=== PATIENT | female | born 1995 | race Caucasian/White ===

== ENCOUNTER 2017-10-29 20:23 | Emergency (ER) | payer OTHER ==
[2017-10-29 20:40] VITALS: BP 123/76; PULSE 79; TEMP 98.5; BMI 24.7
--- NOTE | 2017-10-29 20:40 | PDOC ---
Rapid Medical Evaluation Time Seen by Provider: 10/29/17 20:37 Medical Evaluation: Allergies Allergy/AdvReac Type Severity Reaction Status Date / Time No Known Allergies Allergy Verified 10/10/14 15:55 10/29/17 20:37 I have performed a brief in-person evaluation of this patient. The patient presents with a chief complaint of: left sided parietal dull dawson travelling to frontal forehead with left arm tingling x1 week. PMD informed pt' s "iron count is 8" Pertinent physical exam findings: BUE/BLE strength5/5 I have ordered the following:upreg The patient will proceed to the ED for further evaluation. Discharge Disposition - Referrals Referrals: Merrill Thurman MD [Primary Care Provider] - - Patient Instructions - Post Discharge Activity
[2017-10-29 20:56] LABS: BASO % 0.5 % (0-2.0); EOS % 3.2 % (0-4.5); HEMATOCRIT 34.7 % (32.4-45.2); HEMOGLOBIN 11.6 GM/dL (10.7-15.3); LYMPH % 26.8 % (8-40); MCH 26.5 pg (25.7-33.7); MCHC 33.3 g/dl (32.0-36.0); MEAN CELL VOLUME 79.4 fl (80-96); MEAN PLT VOLUME 7.8 fl (7.5-11.1); MONO % 5.3 % (3.8-10.2); NEUT % 64.2 % (42.8-82.8); PLATELET COUNT 217 K/MM3 (134-434); RBC 4.37 M/mm3 (3.60-5.2); RDW 14.2 % (11.6-15.6); WHITE BLOOD COUNT 6.2 K/mm3 (4.0-10.0)
[2017-10-29 20:58] LABS: HCG,QUALITATIVE URINE NEGATIVE; URINE APPEARANCE CLEAR; URINE BILIRUBIN NEGATIVE (NEGATIVE); URINE BLOOD NEGATIVE (NEGATIVE); URINE COLOR LTYELLOW; URINE GLUCOSE (UA) NEGATIVE (NEGATIVE); URINE KETONE NEGATIVE (NEGATIVE); URINE LEUK ESTERASE NEGATIVE (NEGATIVE); URINE NITRITE NEGATIVE (NEGATIVE); URINE PROTEIN NEGATIVE (NEGATIVE); URINE UROBILINOGEN NEGATIVE mg/dL (0.2-1.0)
[2017-10-29 21:21] LABS: ALBUMIN 3.8 g/dl (3.4-5.0); ALK PHOS 49 U/L (45-117); ANION GAP 5 (8-16); BILIRUBIN,TOTAL 0.4 mg/dL (0.2-1.0); BLOOD UREA NITROGEN 11 mg/dL (7-18); CALCIUM 8.4 mg/dL (8.5-10.1); CHLORIDE 107 mmol/L (98-107); CO2 27 mmol/L (21-32); CREATININE 0.6 mg/dL (0.55-1.02); GLUCOSE,RANDOM 84 mg/dL (74-106); POTASSIUM 3.7 mmol/L (3.5-5.1); SGOT/AST 15 U/L (15-37); SGPT/ALT 32 U/L (12-78); SODIUM 139 mmol/L (136-145); TOT PROT 7.3 g/dl (6.4-8.2)
[2017-10-29] MEDS ORDERED: METOCLOPRAMIDE HCL INJECTION 10 MG/2 ML VIAL IVPUSH ONE (22:10)
[2017-10-29] MEDS ORDERED: ACETAMINOPHEN 1000 MG/100 ML VIAL (NON FORMULARY) IVPB ONE (22:10)
[2017-10-29] MEDS ORDERED: LACTATED RINGERS SOLUTION 1,000 ML/1,000 ML INFUS.BAG IV SCH (22:15)
[2017-10-29] MEDS ORDERED: ACETAMINOPHEN INJECTION 100 ML IVPB ONE (22:20)
[2017-10-29] MEDS ORDERED: METOCLOPRAMIDE HCL INJECTION 10 MG/2 ML VIAL ONE (22:20)
[2017-10-29] MEDS ORDERED: SODIUM CHLORIDE 0.9% 1000 ML INFUS.BAG IV ONE (22:40)
--- NOTE | 2017-10-29 23:17 | PDOC ---
History of Present Illness - General History Source: Patient Exam Limitations: No Limitations - History of Present Illness Initial Comments: 10/29/17 23:45 The patient is a 22 year old female, with no significant past medical history, who presents to the emergency department with, one week of intermittent, left sided headache which is tension-like in nature. She reports secondary to her symptoms, a tingling sensation on her left ulnar distribution radiating to the tips of her 4th and 5th digits. She denies photophobia. She denies recent fevers, chills, or dizziness. She denies recent nausea, vomit, diarrhea or constipation. She denies recent dysuria, frequency, urgency or hematuria. She denies recent chest pain or shortness of breath. Allergies: NKA Past surgical history: None reported. Social history: Nonsmoker. Denies EtOH use and recreational drug use. Primary Care Physician: Dr. Merrill Thurman <Genaro Ivey - Last Filed: 10/30/17 00:28> - General History Source: Patient Exam Limitations: No Limitations <Anselmo Cordova - Last Filed: 10/30/17 00:39> - General Chief Complaint: Headache Stated Complaint: HEADACHE/ARM NUMBNESS Time Seen by Provider: 10/29/17 20:37 Past History <Genaro Ivey - Last Filed: 10/30/17 00:28> - Past Medical History COPD: No - Suicide/Smoking/Psychosocial Hx Smoking Status: No Smoking History: Never smoked Have you smoked in the past 12 months: No Number of Cigarettes Smoked Daily: 0 Information on smoking cessation initiated: No Hx Alcohol Use: No Drug/Substance Use Hx: No Substance Use Type: None <Anselmo Cordova - Last Filed: 10/30/17 00:39> - Past Medical History Allergies/Adverse Reactions: Allergies Allergy/AdvReac Type Severity Reaction Status Date / Time No Known Allergies Allergy Verified 10/29/17 20:40 Home Medications: Ambulatory Orders No Home Medications 0 dose .ROUTE UTDICT 01/26/13 Penicillin V Potassium [Pen Vee K -] 500 mg PO BID #14 tablet 10/10/14 Phenol [Chloraseptic -] 1 spray MM Q6HPO #1 bottle 10/10/14 Acetaminophen [Tylenol] 650 mg PO Q4H PRN #20 tablet 10/30/17 Metoclopramide HCl [Reglan] 10 mg PO Q8H PRN #15 tablet 10/30/17 Review of Systems - Review of Systems Able to Perform ROS?: Yes Comments:: 10/29/17 23:45 GENERAL/CONSTITUTIONAL: No fever or chills. No weakness. HEAD, EYES, EARS, NOSE AND THROAT: No change in vision. No ear pain or discharge. No sore throat. CARDIOVASCULAR: No chest pain or shortness of breath. RESPIRATORY: No cough, wheezing, or hemoptysis. GASTROINTESTINAL: No nausea, vomiting, diarrhea or constipation. GENITOURINARY: No dysuria, frequency, or change in urination. MUSCULOSKELETAL: No joint or muscle swelling or pain. No neck or back pain. SKIN: No rash NEUROLOGIC: +Headache. No vertigo, loss of consciousness, or change in strength/ sensation. ENDOCRINE: No increased thirst. No abnormal weight change. HEMATOLOGIC/LYMPHATIC: No anemia, easy bleeding, or history of blood clots. ALLERGIC/IMMUNOLOGIC: No hives or skin allergy. All Other Systems: Reviewed and Negative <Genaro Ivey - Last Filed: 10/30/17 00:28> *Physical Exam - Vital Signs Last Vital Signs Temp Pulse Resp BP Pulse Ox 98.5 F 79 17 123/76 100 10/29/17 20:38 10/29/17 20:38 10/29/17 20:38 10/29/17 20:38 10/29/17 20:38 - Physical Exam Comments: 10/29/17 23:46 GENERAL: Awake, alert, and fully oriented, in no acute distress HEAD: No signs of trauma EYES: PERRLA, EOMI, sclera anicteric, conjunctiva clear ENT: Auricles normal inspection, hearing grossly normal, nares patent, oropharynx clear without exudates. Moist mucosa NECK: Normal ROM, supple, no lymphadenopathy, JVD, or masses LUNGS: Breath sounds equal, clear to auscultation bilaterally. No wheezes, and no crackles HEART: Regular rate and rhythm, normal S1 and S2, no murmurs, rubs or gallops ABDOMEN: Soft, nontender, normoactive bowel sounds. No guarding, no rebound. No masses EXTREMITIES: Normal range of motion, no edema. No clubbing or cyanosis. No cords, erythema, or tenderness NEUROLOGICAL: Finger, nose test normal. No deficits to light touch and temperature in face, upper extremities and lower extremities. No motor deficits in the in face, upper extremities and lower extremities. No pronator drift. Normoreflexic in the upper and lower extremities. Normal speech. Toes are down- going bilaterally. Gait is normal without ataxia. Cranial nerves II through XII grossly intact. Normal speech, normal gait SKIN: Warm, Dry, normal turgor, no rashes or lesions noted. <Genaro Ivey - Last Filed: 10/30/17 00:28> - Vital Signs Last Vital Signs Temp Pulse Resp BP Pulse Ox 98.5 F 79 17 123/76 100 10/29/17 20:38 10/29/17 20:38 10/29/17 20:38 10/29/17 20:38 10/29/17 20:38 <Anselmo Cordova - Last Filed: 10/30/17 00:39> Heart Score/ECG Review #1 ECG reviewed & interpreted by me at: 22:45 10/29/17 23:17 NSR 66, low voltage QRS, no std/jan, normal axis, normal intervals, T wave flat V3, QTC 434 msec <Anselmo Cordova - Last Filed: 10/30/17 00:39> ED Treatment Course - LABORATORY CBC & Chemistry Diagram: 10/29/17 20:49 10/29/17 20:49 - ADDITIONAL ORDERS Additional order review: Laboratory Results 10/29/17 10/29/17 20:49 20:49 Sodium 139 Potassium 3.7 Chloride 107 Carbon Dioxide 27 Anion Gap 5 L BUN 11 Creatinine 0.6 Creat Clearance w eGFR > 60 Random Glucose 84 Calcium 8.4 L Total Bilirubin 0.4 AST 15 ALT 32 Alkaline Phosphatase 49 Total Protein 7.3 Albumin 3.8 Urine Color Ltyellow Urine Appearance Clear Urine pH 6.0 Ur Specific [place] 1.016 Urine Protein Negative Urine Glucose (UA) Negative Urine Ketones Negative Urine Blood Negative Urine Nitrite Negative Urine Bilirubin Negative Urine Urobilinogen Negative Ur Leukocyte Esterase Negative Urine HCG, Qual Negative 10/29/17 20:49 RBC 4.37 MCV 79.4 L MCHC 33.3 RDW 14.2 MPV 7.8 Neutrophils % 64.2 Lymphocytes % 26.8 Monocytes % 5.3 Eosinophils % 3.2 Basophils % 0.5 - Medications Given in the ED: ED Medications Discontinued Medications Generic Name Dose Route Start Last Admin Trade Name Freq PRN Reason Stop Dose Admin Acetaminophen 1,000 mg 10/29/17 22:10 10/29/17 22:39 Ofirmev Injection - IVPB 10/29/17 22:11 1,000 mg ONCE ONE Administration Metoclopramide HCl 10 mg 10/29/17 22:10 10/29/17 22:39 Reglan Injection - IVPUSH 10/29/17 22:11 10 mg ONCE ONE Administration Sodium Chloride 1,000 ml 10/29/17 22:40 10/29/17 22:41 Normal Saline - IV 10/29/17 22:41 1,000 ml NOW ONE Administration <Genaro Ivey - Last Filed: 10/30/17 00:28> - LABORATORY CBC & Chemistry Diagram: 10/29/17 20:49 10/29/17 20:49 - ADDITIONAL ORDERS Additional order review: Laboratory Results 10/29/17 10/29/17 20:49 20:49 Sodium 139 Potassium 3.7 Chloride 107 Carbon Dioxide 27 Anion Gap 5 L BUN 11 Creatinine 0.6 Creat Clearance w eGFR > 60 Random Glucose 84 Calcium 8.4 L Total Bilirubin 0.4 AST 15 ALT 32 Alkaline Phosphatase 49 Total Protein 7.3 Albumin 3.8 Urine Color Ltyellow Urine Appearance Clear Urine pH 6.0 Ur Specific [place] 1.016 Urine Protein Negative Urine Glucose (UA) Negative Urine Ketones Negative Urine Blood Negative Urine Nitrite Negative Urine Bilirubin Negative Urine Urobilinogen Negative Ur Leukocyte Esterase Negative Urine HCG, Qual Negative 10/29/17 20:49 RBC 4.37 MCV 79.4 L MCHC 33.3 RDW 14.2 MPV 7.8 Neutrophils % 64.2 Lymphocytes % 26.8 Monocytes % 5.3 Eosinophils % 3.2 Basophils % 0.5 - RADIOLOGY Radiology Studies Ordered: Category Date Time Status HEAD CT WITHOUT CONTRAST [CT] Stat CT Scan 10/29/17 22:10 Ordered - Medications Given in the ED: ED Medications Discontinued Medications Generic Name Dose Route Start Last Admin Trade Name Freq PRN Reason Stop Dose Admin Acetaminophen 1,000 mg 10/29/17 22:10 10/29/17 22:39 Ofirmev Injection - IVPB 10/29/17 22:11 1,000 mg ONCE ONE Administration Metoclopramide HCl 10 mg 10/29/17 22:10 10/29/17 22:39 Reglan Injection - IVPUSH 10/29/17 22:11 10 mg ONCE ONE Administration Sodium Chloride 1,000 ml 10/29/17 22:40 10/29/17 22:41 Normal Saline - IV 10/29/17 22:41 1,000 ml NOW ONE Administration <Anselmo Cordova - Last Filed: 10/30/17 00:39> Medical Decision Making - Medical Decision Making 10/30/17 00:28 EXAM: HEAD CT WITHOUT CONTRAST HISTORY: Left-sided headache COMPARISON: None. FINDINGS: Brain parenchyma is normal in attenuation with no mass or hematoma. There is no midline shift. Hernandez and white matter differentiation is normal. Ventricles are normal. Sulci and extra-axial CSF spaces are normal. Intracranial vascular structures are normal in attenuation There is no calvarial fracture. Paranasal sinuses are normally aerated. IMPRESSION: Normal head Read by: Giovanni Rodriguez MD <Genaro Ivey - Last Filed: 10/30/17 00:28> - Medical Decision Making 10/29/17 23:07 A portion of this note was documented by scribe services under my direction. I have reviewed the details of the note, within reason, and agree with the documentation with the following case summary and management plan written by me. Patient treated in the ED. Nursing notes are reviewed and incorporated into the medical decision-making. Vital signs reviewed. Peripheral IV access obtained by the nurse, laboratory studies are drawn and sent, reviewed and interpreted by myself. Vital Signs Temp Pulse Resp BP Pulse Ox 98.5 F 79 17 123/76 100 10/29/17 20:38 10/29/17 20:38 10/29/17 20:38 10/29/17 20:38 10/29/17 20:38 22-year-old female patient with no past medical history presents with headache. The patient reported approximately one week of having a left-sided tension-like headache that was intermittent. Has become more consistent area not associated with photophobia or phonophobia. Denies prior history of migraines and denies family history of migraines. Has noticed lately that she's been having a tingling sensation along the ulnar distribution of her left upper extremity. Denies any midsternal chest pain or shortness of breath. States that this is her first episode of headache. Denies recent illnesses, fevers, chills, cough. Approximate one week ago, the patient was diagnosed with iron deficiency, and was initiated on iron pills. Denies shortness of breath or dyspnea on exertion. I suspect the patient is likely having a migraine headache. However, obtain head CT given first-time episode. We'll trial migraine medications. This left upper extremity I suspect may be or peripheral as opposed to central. We'll give referral to orthopedics. Labs are unremarkable. If workup is unremarkable, the patient can be discharged with PMD follow-up. 10/30/17 00:[address] negative. CBC, BMP 10/29/17 20:49 10/29/17 20:49 CMP Sodium 139 mmol/L (136-145) 10/29/17 20:49 Potassium 3.7 mmol/L (3.5-5.1) 10/29/17 20:49 Chloride 107 mmol/L (98-107) 10/29/17 20:49 Carbon Dioxide 27 mmol/L (21-32) 10/29/17 20:49 Anion Gap 5 (8-16) L 10/29/17 20:49 BUN 11 mg/dL (7-18) 10/29/17 20:49 Creatinine 0.6 mg/dL (0.55-1.02) 10/29/17 20:49 Creat Clearance w eGFR > 60 (>60) 10/29/17 20:49 Random Glucose 84 mg/dL (74-106) 10/29/17 20:49 Calcium 8.4 mg/dL (8.5-10.1) L 10/29/17 20:49 Total Bilirubin 0.4 mg/dL (0.2-1.0) 10/29/17 20:49 AST 15 U/L (15-37) 10/29/17 20:49 ALT 32 U/L (12-78) 10/29/17 20:49 Alkaline Phosphatase 49 U/L (45-117) 10/29/17 20:49 Total Protein 7.3 g/dl (6.4-8.2) 10/29/17 20:49 Albumin 3.8 g/dl (3.4-5.0) 10/29/17 20:49 Urine Test Results Urine Color Ltyellow 10/29/17 20:49 Urine Appearance Clear 10/29/17 20:49 Urine pH 6.0 (5.0-8.0) 10/29/17 20:49 Ur Specific [place] 1.016 (1.001-1.035) 10/29/17 20:49 Urine Protein Negative (NEGATIVE) 10/29/17 20:49 Urine Glucose (UA) Negative (NEGATIVE) 10/29/17 20:49 Urine Ketones Negative (NEGATIVE) 10/29/17 20:49 Urine Blood Negative (NEGATIVE) 10/29/17 20:49 Urine Nitrite Negative (NEGATIVE) 10/29/17 20:49 Urine Bilirubin Negative (NEGATIVE) 10/29/17 20:49 Ur Leukocyte Esterase Negative (NEGATIVE) 10/29/17 20:49 Patient's EKG demonstrates nonspecific findings. It also includes old low voltage QRS. Bedside echo was performed and demonstrated normal contractility and no protocol effusion. Patient otherwise felt much better after the migraine medications. We'll treat as a migraine have the patient follow-up as an outpatient. We'll refer to orthopedics for her hand. I discussed the physical exam findings, ancillary test results and final diagnoses with the patient. I answered all of the patient's questions. The patient was satisfied with the care received and felt comfortable with the discharge plan and treatment plan. The patient will call their primary care physician within 24 hours to arrange follow-up and will return to the Emergency Department with any new, persistant or worsening symptoms. <Anselmo Cordova - Last Filed: 10/30/17 00:39> *DC/Admit/Observation/Transfer - Attestations Scribe Attestion: 10/29/17 23:46 Documentation prepared by Genaro Ivey, acting as medical data entry clerk for Anselmo Cordova MD. <Genaro Ivey - Last Filed: 10/30/17 00:28> - Discharge Dispostion Admit: No <Anselmo Cordova - Last Filed: 10/30/17 00:39> Diagnosis at time of Disposition: Headache Qualifiers: Headache type: unspecified Headache chronicity pattern: acute headache Intractability: not intractable Qualified Code(s): R51 - Headache - Discharge Dispostion Disposition: HOME Condition at time of disposition: Improved - Prescriptions Prescriptions: Acetaminophen [Tylenol] 650 mg PO Q4H PRN #20 tablet PRN Reason: Headache Metoclopramide HCl [Reglan] 10 mg PO Q8H PRN #15 tablet PRN Reason: Nausea/Headache - Referrals Referrals: Merrill Thurman MD [Primary Care Provider] - Reza Espana MD [Staff Physician] - Tomas Acosta MD [Staff Physician] - Orlando Turner MD [Staff Physician] - - Patient Instructions Printed Discharge Instructions: DI for Headache Additional Instructions: Your Head CT is negative. Please follow up with your doctor. Take the medications as prescribed as needed. - Post Discharge Activity
--- NOTE | 2017-10-30 13:03 | EKG ---
Test Reason : Blood Pressure : / mmHG Vent. Rate : 066 BPM Atrial Rate : 066 BPM P-R Int : 156 ms QRS Dur : 076 ms QT Int : 414 ms P-R-T Axes : 067 058 028 degrees QTc Int : 434 ms NORMAL SINUS RHYTHM LOW VOLTAGE QRS POOR R WAVE PROGRESSION ABNORMAL ECG NO PREVIOUS ECGS AVAILABLE Confirmed by ADINA MAHONEY, SALLY ([id number]) on 10/30/2017 1:03:27 PM Referred By: Confirmed By:SALLY HOLDEN MD
== END 2017-10-30 00:48 | disposition home or self-care (01) ==
LOC: JER 20:23
PROC: 3E033NZ Introduction of Analgesics, Hypnotics, Sedatives into Peripheral Vein, Percutaneous Approach (ICD-10-PCS; principal; 2017-10-29)
PROC: 3E033GC Introduction of Other Therapeutic Substance into Peripheral Vein, Percutaneous Approach (ICD-10-PCS; 2017-10-29)
DX: R51 Headache (principal)
CPT/HCPCS: 36415; 70450-TC; 80053; 81003; 84703; 85025; 93005; 93010; 99283-25

== ENCOUNTER 2018-05-30 02:13 | Emergency (ER) | payer OTHER ==
[2018-05-30 02:57] VITALS: BP 116/77; PULSE 89; TEMP 99.1; BMI 23.8
[2018-05-30] MEDS ORDERED: SODIUM CHLORIDE 0.9% 500 ML INFUS.BAG IV ONE ×2 (03:06→04:44)
--- NOTE | 2018-05-30 03:11 | PDOC ---
Attending Attestation - Resident Resident Name: Chloe Damon - ED Attending Attestation I have performed the following: I have examined & evaluated the patient, The case was reviewed & discussed with the resident, I agree w/resident's findings & plan - Medical Decision Making 05/30/18 04:48 Labs are normal; CTA pending Pt has a slight UTI with + leukocytes in her urine.
[2018-05-30 03:53] LABS: BASO % 0.2 % (0-2.0); EOS % 0.8 % (0-4.5); HEMATOCRIT 36.8 % (32.4-45.2); HEMOGLOBIN 12.6 GM/dL (10.7-15.3); LYMPH % 15.9 % (8-40); MCH 27.4 pg (25.7-33.7); MCHC 34.2 g/dl (32.0-36.0); MEAN CELL VOLUME 80.2 fl (80-96); MEAN PLT VOLUME 7.8 fl (7.5-11.1); MONO % 4.3 % (3.8-10.2); NEUT % 78.8 % (42.8-82.8); PLATELET COUNT 212 K/MM3 (134-434); RBC 4.59 M/mm3 (3.60-5.2); RDW 13.4 % (11.6-15.6); WHITE BLOOD COUNT 7.1 K/mm3 (4.0-10.0)
--- NOTE | 2018-05-30 03:58 | PDOC ---
History of Present Illness - General Chief Complaint: Syncope/Near Syncope Stated Complaint: SYNCOPE - History of Present Illness Initial Comments: Carmen Tejada is a 22yo woman with a PMH of iron-deficiency anemia who presents to the ED after a witnessed syncope event tonight. She reports that she was sitting on the floor playing cards at a relative's house when she started to feel suddenly nauseated. She stood up and walked to the sofa; immediately after sitting down, she briefly lost consciousness and slumped over the to the side. A friend, present in the ED, witnessed the event and stated that she was unresponsive for 30-60 seconds. Right before waking up, she had slight trembling in her entire body. Carmen states that she also noticed that she had a small amount of urinary incontinence that she noticed when she used the bathroom later, but she says that it was only a little bit of urine on her underwear. At the time of the syncope event, Carmen was smoking flavored tobacco from a hooka. She and her friends report that this is a frequent activity, they use the same brand of tobacco as normal, and she has never had any problems with it in the past. She has never had any fainting episodes. She felt well recently and earlier today. Carmen denies any other symptoms including recent headache, fever/chills, bleeding episodes, vomiting, or diarrhea. She does report that she was on iron supplementation for her anemia, but she stopped taking it for several months and only restarted within the last 2 weeks. She also reports losing 8-10lb over the last month intentionally; she has been restricting her food intake. She denies using any weight loss supplements or excessive exercising. Past History - Past Medical History Allergies/Adverse Reactions: Allergies Allergy/AdvReac Type Severity Reaction Status Date / Time No Known Allergies Allergy Verified 10/29/17 20:40 Home Medications: Ambulatory Orders Ferrous Sulfate 325 mg PO DAILY 05/30/18 Nitrofurantoin Macrocrystal [Macrodantin] 100 mg PO BID #14 capsule 05/30/18 COPD: No - Suicide/Smoking/Psychosocial Hx Smoking Status: No Smoking History: Unknown if ever smoked Have you smoked in the past 12 months: No Number of Cigarettes Smoked Daily: 0 Hx Alcohol Use: No Drug/Substance Use Hx: No Substance Use Type: None Review of Systems - Review of Systems Comments:: General: No fevers, no chills, no weight or appetite change, no malaise HEENT: No changes in vision, no changes in hearing, no congestion, no sore throat CV: No chest pain, no palpitations, no LE edema Pulm: No SOB, no cough, no wheezing GI: No nausea or vomiting, no change in bowel habits, no melena : No frequency, no urgency, no dysuria Musc: No back pain, no joint swelling, no recent injury Skin: No rash, no lesions, no erythema Endo: No excessive thirst, no heat/cold intolerance Heme: No unusual bruising or bleeding, no swollen glands Neuro: +Syncope, No numbness/tingling, no focal weakness Vasc: No claudication Psych: No recent change in mood, no SI or HI *Physical Exam - Vital Signs Last Vital Signs Temp Pulse Resp BP Pulse Ox 99.1 F 89 19 116/77 100 05/30/18 02:40 05/30/18 02:40 05/30/18 02:40 05/30/18 02:40 05/30/18 02:40 - Physical Exam Comments: General: Comfortable, no acute distress HEENT: Atraumatic, PERRL, EOMI, MMM, voice normal, normal neck ROM, no LAD Cards: RRR, no murmur appreciated Pulm: Comfortable on room air, clear to auscultation bilaterally Abd: Soft, nontender, nondistended : No CVA tenderness Ext: Atraumatic. No LE edema. ROM intact. Strength 5/5 and equal bilaterally Vasc: Extremities WWP. Palpable radial and pedal pulses bilaterally Neuro: A&Ox3, CN grossly intact, normal speech, motor/sensory grossly intact and symmetric Psych: Mood appropriate to situation ED Treatment Course - LABORATORY CBC & Chemistry Diagram: 05/30/18 03:41 05/30/18 03:41 Medical Decision Making - Medical Decision Making 05/30/18 03:59 Carmen Tejada is a 22yo woman with a PMH of migraines and iron-deficiency anemia who presents with witnessed syncope and possible seizure-like activity immediately following the onset of nausea. - Syncope most likely a vagal response to nausea. It also occurred immediately after standing and may have had an orthostatic component - With h/o migraines, will rule out acute intracranial process though this is unlikely given lack of other symptoms - R/o as a cause of syncope - Could also be due to electrolyte abnormalities, especially with recent weight loss and diet restrictions. Could be due to anemia as pt reports just finishing her period and that she was not taking her iron supplementation for months - CBC, BMP, UA, urine preg, head CT ordered 05/30/18 05:09 - CBC, BMP unremarkable. Urine negative. UA with few WBCs, +leuk esterase - Reports that she has not been drinking much recently, feels dehydrated. 2L normal saline, reglan, acetaminophen given - Currently at CT, will reassess when returned from CT 05/30/18 05:45 - Feels improved after medications - CT reviewed. No pathology noted. Radiology read pending - Discussed results with Ms Tejada. With normal labs, normal CT, the syncope was most likely due to a combination of factors including nausea, orthostasis, dehydration. UTI may also have contributed. Discussed follow-up with her PMD within the next week, and discussed return precautions. Ms Tejada understands and agrees with the plan to discharge home pending radiologist read of CT. 05/30/18 06:06 - CT final read with no acute pathology - Discharge home Discussed with Dr Arias *DC/Admit/Observation/Transfer Diagnosis at time of Disposition: Syncope Qualifiers: Syncope type: unspecified Qualified Code(s): R55 - Syncope and collapse - Discharge Dispostion Disposition: HOME Condition at time of disposition: Good - Prescriptions Prescriptions: Nitrofurantoin Macrocrystal [Macrodantin] 100 mg PO BID #14 capsule - Referrals Referrals: Merrill Thurman MD [Primary Care Provider] - - Patient Instructions Printed Discharge Instructions: DI for Syncope in Adults (Fainting) Additional Instructions: Discharge Instructions: - You were seen in the ED after fainting - Your blood tests were all normal. You also had a CT scan of your head that did not show anything abnormal - The fainting episode was likely due to a combination of factors including dehydration, a drop in blood pressure with rapid standing (orthostasis), and may also have been a reaction to the nausea that occurred just before you fainted. The fainting may also have also been due to something called the vasovagal response, which is when your body reacts to a trigger such as stress by causing blood vessel dilation that then drops your blood pressure and can lead to fainting. - A urine test indicated that you probably have a urinary tract infection (UTI) . You have been prescribed an antibiotic. Take this as directed until the medication is gone. - You should follow up with your primary doctor to ensure that you are recovering well from your UTI and the fainting epsiode - Make sure that you are drinking plenty of fluids - If you are thirsty, drink water! Also ensure that you are getting at least 7-8 hours of sleep per night. - Seek medical attention if you have repeated episodes of fainting, have a head injury, or have severe headache combined with fever to 101F - Post Discharge Activity
[2018-05-30 04:11] LABS: ANION GAP 5 MMOL/L (8-16); BLOOD UREA NITROGEN 13 mg/dL (7-18); CHLORIDE 105 mmol/L (98-107); CO2 29 mmol/L (21-32); CREATININE 0.6 mg/dL (0.55-1.02); GLUCOSE,RANDOM 88 mg/dL (74-106); POTASSIUM 3.9 mmol/L (3.5-5.1); SODIUM 139 mmol/L (136-145)
[2018-05-30 04:12] LABS: URINE APPEARANCE CLEAR; URINE BILIRUBIN NEGATIVE (<2.0 mg/dL); URINE COLOR LTYELLOW; URINE GLUCOSE (UA) NEGATIVE (NEGATIVE); URINE KETONE NEGATIVE (NEGATIVE); URINE NITRITE NEGATIVE (NEGATIVE); URINE PROTEIN NEGATIVE (NEGATIVE); URINE UROBILINOGEN NEGATIVE mg/dL (0.2-1.0)
[2018-05-30 04:14] LABS: HCG,QUALITATIVE URINE Negative; URINE LEUK ESTERASE 1+ (NEGATIVE)
[2018-05-30 04:15] LABS: EPI CELLS FEW /HPF (FEW); URINE MUCUS RARE
[2018-05-30] MEDS ORDERED: ACETAMINOPHEN 500 MG TABLET (FP) PO ONE (04:43)
[2018-05-30] MEDS ORDERED: METOCLOPRAMIDE HCL INJECTION 10 MG/2 ML VIAL IVPUSH ONE (04:44)
[2018-05-30] MEDS ORDERED: ACETAMINOPHEN 325 MG TABLET (FP) ONE (04:46)
[2018-05-30] MEDS ORDERED: METOCLOPRAMIDE HCL INJECTION 10 MG/2 ML VIAL ONE (04:47)
[2018-05-30] MEDS ORDERED: NITROFURANTOIN MACROCRYSTAL 50 MG CAPSULE (FP) PO SCH (05:00)
[2018-05-30] MEDS ORDERED: NITROFURANTOIN MACROCRYSTAL 50 MG CAPSULE (FP) ONE (06:18)
== END 2018-05-30 06:26 | disposition home or self-care (01) ==
LOC: JER 02:13
PROC: 3E033GC Introduction of Other Therapeutic Substance into Peripheral Vein, Percutaneous Approach (ICD-10-PCS; principal; 2018-05-30)
DX: R55 Syncope and collapse (principal); D50.9 Iron deficiency anemia, unspecified; G43.909 Migraine, unspecified, not intractable, without status migrainosus
CPT/HCPCS: 36415; 70496-TC; 80048; 81003; 81015; 84703; 85025; 99282-25

== ENCOUNTER 2025-03-14 06:15 | Inpatient (IN) | payer OTHER ==
[2025-03-14 06:48] VITALS: BMI 25.6
[2025-03-14] MEDS: ELECTROLYTE-148 SOLN 1,000 ML IV ONE (07:00)
[2025-03-14] MEDS: ELECTROLYTE-148 SOLN 1,000 ML IV SCH (07:45)
[2025-03-14] MEDS ORDERED: OXYTOCIN 20 UNITS in 0.9% NS 40 UNIT/2,000 ML INFUS.BAG IV ONE (09:09)
[2025-03-14] MEDS: CITRIC ACID/SODIUM CITRATE 30 ML UNIT-DOSE CUP PO ONE (09:10)
[2025-03-14] MEDS ORDERED: FENTANYL CITRATE/PF 50 MCG/ML VIAL ONE (09:39)
[2025-03-14] MEDS ORDERED: morphine SULFATE/PF 1 MG/2 ML (2cc Syringe - QUVA) ONE (09:39)
[2025-03-14] MEDS ORDERED: OXYTOCIN 10 UNITS/ML VIAL ONE (10:07)
[2025-03-14] MEDS: OXYTOCIN 20 UNITS in 0.9% NS 20 UNIT/1,000 ML INFUS.BAG IV SCH (11:05)
[2025-03-14] MEDS ORDERED: ONDANSETRON 4 MG/2 ML VIAL IVPB PRN (11:09)
[2025-03-14] MEDS: ACETAMINOPHEN 1000 MG/100 ML BAG IVPB PRN (12:25)
[2025-03-14] MEDS ORDERED: IBUPROFEN (CALDOLOR) 800 MG/200 ML PREMIX BAGS IVPB PRN (13:00)
[2025-03-14] MEDS: CEFAZOLIN 1 GM/D5W 1 GM/50 ML BAG IVPB SCH (17:46)
[2025-03-14] MEDS ORDERED: CEFAZOLIN 1 GM in DEXTROSE 5%-WATER - 50 ML IVPB SCH (18:00)
[2025-03-14] MEDS: SENNOSIDES/DOCUSATE COMBO (SENNA PLUS) TABLET (UD) PO SCH (21:33)
[2025-03-15] MEDS: oxyCODONE HCL 5 MG TABLET PO PRN (01:37)
[2025-03-15] MEDS: SIMETHICONE 80 MG TAB.CHEW (FP) PO PRN (01:37)
[2025-03-15 07:08] LABS: ABSOLUTE IMMATURE GRANULOCYTES 0.03 x10^3/uL (0.0-0.031); EOSINOPHIL % 0.7 % (0.7-5.8); EOSINOPHILS # 0.05 x10^3/uL (0.04-0.36); HEMOGLOBIN 7.7 g/dL (11.2-15.7); MCHC 30.8 g/dl (32.2-35.5); MEAN CELL VOLUME 78.6 fl (79.4-94.8); MONOCYTE # 0.36 x10^3/uL (0.24-0.86); MONOCYTE % 5.3 % (4.7-12.5); PLATELET COUNT 126 x10^3/uL (182-369); RDW 14.4 % (12.1-16.5)
[2025-03-15] MEDS: IBUPROFEN 600 MG TABLET (FP) PO PRN (07:19)
[2025-03-15] MEDS ORDERED: BISACODYL 10 MG SUPP.RECT RC PRN (11:09)
[2025-03-15] MEDS: ACETAMINOPHEN 325 MG TABLET (FP) PO PRN (17:40)
[2025-03-15] MEDS: HYDROCORTISONE 1% TOPICAL CREAM 30 GM TUBE TP PRN (22:39)
[2025-03-16 08:32] LABS: ABSOLUTE IMMATURE GRANULOCYTES 0.02 x10^3/uL (0.0-0.031); BASOPHILS # 0.01 x10^3/uL (0.01-0.08); EOSINOPHIL % 0.9 % (0.7-5.8); EOSINOPHILS # 0.04 x10^3/uL (0.04-0.36); HEMATOCRIT 23.8 % (34.1-44.9); HEMOGLOBIN 7.2 g/dL (11.2-15.7); MCHC 30.3 g/dl (32.2-35.5); MEAN CELL VOLUME 79.6 fl (79.4-94.8); MEAN PLT VOLUME 10.9 fl (9.4-12.3); MONOCYTE # 0.23 x10^3/uL (0.24-0.86); MONOCYTE % 5.3 % (4.7-12.5); PLATELET COUNT 128 x10^3/uL (182-369); RDW 14.6 % (12.1-16.5)
[2025-03-16] MEDS: FERROUS SO4 325 MG TABLET (FP) PO SCH (11:18)
[2025-03-17 07:53] LABS: EOSINOPHIL % 2.2 % (0.7-5.8); EOSINOPHILS # 0.09 x10^3/uL (0.04-0.36); HEMOGLOBIN 7.6 g/dL (11.2-15.7); RDW 14.7 % (12.1-16.5)
[2025-03-17 07:55] LABS: ABSOLUTE IMMATURE GRANULOCYTES 0.02 x10^3/uL (0.0-0.031); BASOPHILS # 0.01 x10^3/uL (0.01-0.08); HEMATOCRIT 25.4 % (34.1-44.9); MCHC 29.9 g/dl (32.2-35.5); MEAN CELL VOLUME 81.9 fl (79.4-94.8); MEAN PLT VOLUME 10.5 fl (9.4-12.3); MONOCYTE # 0.29 x10^3/uL (0.24-0.86); PLATELET COUNT 128 x10^3/uL (182-369)
[2025-03-17 10:32] VITALS: BP 100/68; PULSE 70; RESP 17; TEMP 98.4
== END 2025-03-17 11:45 | disposition home or self-care (01) | DRG 540 ==
LOC: FM/S 06:15 → JLDR 06:20 → J3W 13:35
PROVIDERS: ADMIT Specialist; ATTEND Specialist
PROC: 10D00Z1 Extraction of Products of Conception, Low, Open Approach (ICD-10-PCS; principal; 2025-03-14)
DX: O34.211 Maternal care for low transverse scar from previous cesarean delivery (principal); Z3A.39 39 weeks gestation of pregnancy; Z37.0 Single live birth; O75.89 Other specified complications of labor and delivery; R21 Rash and other nonspecific skin eruption
CPT/HCPCS: 36415; 59409; 80053; 85025; 85027; 85610; 85730; 86780; 86850; 86900; 86901; 87389; 88307-TC; 94010